=== PATIENT | female | born 1930 ===

== ENCOUNTER 2017-07-04 13:35 | Inpatient (IN) | payer MEDICAID ==
[2017-07-04] MEDS ORDERED: Albuterol-Ipratrop 3 mg / 0.5 (3 ml) UD IH STA ×2 (14:28→19:31)
[2017-07-04] MEDS ORDERED: Sodium Chloride 0.9% 1,000 ML IV STA (14:28)
--- NOTE | 2017-07-04 14:42 | ED PDOC ---
HPI: Abdomen Time Seen by Provider: 07/04/17 14:15 Chief Complaint (Nursing): Abdominal Pain History Per: Patient Onset/Duration Of Symptoms: Other (1 week) Current Symptoms Are (Timing): Still Present Severity: Moderate Location Of Pain/Discomfort: Epigastric Quality Of Discomfort: Unable To Describe Associated Symptoms: denies: Nausea, Vomiting, Diarrhea Additional Complaint(s): Epigastric abd pain x 1 week. Denies NVD. Denies fever. Also c/o cough productive yellow sputum assoc with SOB. Past Medical History Vital Signs: Last Vital Signs Temp 98.8 F 07/04/17 14:04 Pulse 100 H 07/04/17 14:04 Resp 20 07/04/17 14:04 BP 119/72 07/04/17 14:04 Pulse Ox 98 07/04/17 14:43 - Medical History PMH: Asthma, HTN - Family History Family History: States: Unknown Family Hx - Home Medications Home Medications: Ambulatory Orders Medication Instructions Recorded Albuterol Sulfate [Ventolin Hfa] 2 puff IH Q4 PRN 07/04/17 Aspirin [Ecotrin] 81 mg PO DAILY 07/04/17 Diclofenac Sodium [Voltaren] 50 mg PO Q12 07/04/17 Famotidine [Pepcid] 20 mg PO QPM 07/04/17 Gabapentin [Neurontin] 300 mg PO Q12 07/04/17 Memantine [Namenda] 5 mg PO DAILY 07/04/17 Omeprazole [Omeprazole] 40 mg PO DAILY 07/04/17 Oxybutynin [Ditropan Tab] 5 mg PO Q12 07/04/17 Pentoxifylline [Pentoxil] 400 mg PO Q12 07/04/17 Sertraline [Zoloft] 50 mg PO DAILY 07/04/17 hydroCHLOROthiazide [Hydrodiuril] 25 mg PO DAILY 07/04/17 - Allergies Allergies/Adverse Reactions: Allergies Allergy/AdvReac Type Severity Reaction Status Date / Time No Known Allergies Allergy Verified 07/04/17 14:04 Review of Systems ROS Statement: Except As Marked, All Systems Reviewed And Found Negative Constitutional: Negative for: Fever Respiratory: Positive for: Cough, Shortness of Breath Gastrointestinal: Positive for: Abdominal Pain. Negative for: Nausea, Vomiting , Diarrhea Physical Exam - Reviewed Nursing Documentation Reviewed: Yes Vital Signs Reviewed: Yes - Physical Exam Appears: Positive for: Non-toxic, No Acute Distress Head Exam: Positive for: ATRAUMATIC, NORMAL INSPECTION, NORMOCEPHALIC Skin: Positive for: Normal Color, Warm, DRY Eye Exam: Positive for: EOMI, Normal appearance, PERRL ENT: Positive for: Normal ENT Inspection Neck: Positive for: Normal, Painless ROM Cardiovascular/Chest: Positive for: Regular Rate, Rhythm Respiratory: Positive for: Rhonchi, Wheezing. Negative for: Respiratory Distress Gastrointestinal/Abdominal: Positive for: Soft, Tenderness Back: Positive for: Normal Inspection Extremity: Positive for: Normal ROM Neurologic/Psych: Positive for: Alert, Oriented - Laboratory Results Result Diagrams: 07/04/17 16:09 07/04/17 16:09 - ECG O2 Sat by Pulse Oximetry: 98 Disposition - Clinical Impression Clinical Impression: Exacerbation of asthma, Bronchitis - Patient ED Disposition Is Patient to be Admitted: Yes - Disposition Disposition Time: 20:44 Condition: FAIR Forms: [facility] (Greenlandic) - Pt Status Changed To: Hospital Disposition Of: Observation - POA Present On Arrival: None
[2017-07-04] MEDS ORDERED: Albuterol-Ipratrop 3 mg / 0.5 (3 ml) UD ONE ×2 (15:06→20:23)
[2017-07-04 16:15] LABS: BASO % 0.5 % (0.0-2.0); EOS # 0.1 K/uL (0.0-0.7); EOS % 1.5 % (0.0-4.0); HEMOGLOBIN 11.2 g/dL (12.0-16.0); LYMPH # 2.3 K/uL (1.0-4.3); LYMPH % 27.5 % (20.0-40.0); MEAN CELL VOLUME 97.3 fl (81.0-99.0); MEAN CORPUSCULAR HEMOGLOBIN 32.7 pg (27.0-31.0); MEAN CORPUSCULAR HGB CONC 33.6 g/dL (33.0-37.0); MEAN PLATELET VOLUME 9.2 fl (7.2-11.7); MONO # 0.7 K/uL (0.0-0.8); MONO % 8.7 % (0.0-10.0); NEUT # 5.1 K/uL (1.8-7.0); NEUT % 61.8 % (50.0-75.0); NRBC % 0.1 % (0.0-0.0); RBC 3.42 Mil/uL (3.80-5.20); RED CELL DISTRIBUTION WIDTH 15.3 % (11.5-14.5); WHITE BLOOD COUNT 8.2 K/uL (4.8-10.8)
[2017-07-04] MEDS ORDERED: Sodium Chloride 0.9% 0 ML ONE (16:16)
[2017-07-04] MEDS ORDERED: Iohexol 300 100 ML IJ ONE (16:16)
[2017-07-04 16:27] LABS: ALB/GLOB RATIO 1.1 (1.0-2.1); ALBUMIN 3.8 g/dL (3.5-5.0); CALCIUM 8.5 mg/dL (8.4-10.2)
--- NOTE | 2017-07-04 16:37 | RAD ---
PROCEDURE: CHEST RADIOGRAPH, 1 VIEW HISTORY: Cough COMPARISON: No prior study available for comparison FINDINGS: LUNGS: Paratracheal tissues likely represent ectatic great vessels. . Mild bibasilar atelectasis. PLEURA: No pneumothorax or pleural fluid seen. CARDIOVASCULAR: Heart is enlarged. Aorta ectatic and uncoiled. Prominent right pulmonary artery more prominent in appearance likely due to patient rotation to the right. Possibility of a right hilar lymph node not completely excluded. OSSEOUS STRUCTURES: No significant abnormalities. VISUALIZED UPPER ABDOMEN: Normal. OTHER FINDINGS: None. IMPRESSION: Mild bibasilar atelectasis. Paratracheal densities felt to represent ectatic great vessels. Cardiomegaly. Aorta is ectatic and uncoiled. Probable enlarged pulmonary artery more conspicuous in appearance likely due to patient rotation to the right side however the possibility of a prominent right hilar lymph node not excluded.
[2017-07-04] MEDS ORDERED: Potassium Chloride 20 mEq ER Tab PO ONE ×2 (16:45→20:23)
[2017-07-04] MEDS ORDERED: cefTRIAXone (Rocephin) 1 gm Inj ONE (21:51)
[2017-07-05 01:40] VITALS: BMI 173.3
[2017-07-05] MEDS: Albuterol-Ipratrop 3 mg / 0.5 (3 ml) UD INH SCH ×6 (04:10→23:45)
[2017-07-05 05:53] LABS: HEMOGLOBIN 10.9 g/dL (12.0-16.0); MEAN CELL VOLUME 97.3 fl (81.0-99.0); MEAN CORPUSCULAR HEMOGLOBIN 32.8 pg (27.0-31.0); MEAN CORPUSCULAR HGB CONC 33.7 g/dL (33.0-37.0); RBC 3.33 Mil/uL (3.80-5.20); RED CELL DISTRIBUTION WIDTH 15.2 % (11.5-14.5); WHITE BLOOD COUNT 6.8 K/uL (4.8-10.8)
[2017-07-05 06:04] LABS: ALB/GLOB RATIO 1.1 (1.0-2.1); ALBUMIN 3.7 g/dL (3.5-5.0); CALCIUM 8.5 mg/dL (8.4-10.2)
[2017-07-05 06:18] LABS: T4 9.55 ug/dl (5.5-11.0)
[2017-07-05 06:32] LABS: T3 0.945 nmol/L (1.49-2.60)
--- NOTE | 2017-07-05 08:29 | CP.PCM.HP ---
History of Present Illness - History of Present Illness History of Present Illness: 86 yo ,f, PMhx/o Asthma, HTN presents c/o productive cough with whitish expectoration started 7 days associated with SOB, wheezing, . Patient also c/o epigastric abd pain postprandial for one months and dysuria for the last 8 days. Patient denies fever, chills. Chest pain, SOB, n,v,d, abd pain, orthopnea , pedal edema, PND. Patient is not good historian. She reports sadness for about 1 month, low appetite, insominia. Taking Zoloft at home. Patient seen with Dr Savannah dover. Psyq consult Transfer to [facility]. Present on Admission - Present on Admission Any Indicators Present on Admission: No History of DVT/PE: No History of Uncontrolled Diabetes: No Urinary Catheter: No Decubitus Ulcer Present: No Review of Systems - Review of Systems All systems: reviewed and no additional remarkable complaints except - Respiratory Respiratory: Cough, Dyspnea - Gastrointestinal Additional comments: epigastric abd pain Past Patient History - Past Medical History & Family History Past Medical History?: Yes - Past Social History Smoking Status: Never Smoked - CARDIAC Hx Cardiac Disorders: Yes Hx Hypertension: Yes - PULMONARY Hx Respiratory Disorders: Yes Hx Asthma: Yes - ENDOCRINE/METABOLIC Other/Comment: high cholesterol - MUSCULOSKELETAL/RHEUMATOLOGICAL Hx Arthritis: Yes Hx Falls: No - PSYCHIATRIC Hx Substance Use: No - ANESTHESIA Hx Anesthesia: No Meds Allergies/Adverse Reactions: Allergies Allergy/AdvReac Type Severity Reaction Status Date / Time No Known Allergies Allergy Verified 07/04/17 14:04 Physical Exam - Constitutional Appears: Non-toxic, No Acute Distress - Head Exam Head Exam: ATRAUMATIC, NORMOCEPHALIC - Eye Exam Eye Exam: Normal appearance - ENT Exam ENT Exam: Mucous Membranes Moist - Respiratory Exam Respiratory Exam: Rhonchi, Wheezes. absent: Rales - Cardiovascular Exam Cardiovascular Exam: REGULAR RHYTHM, +S1, +S2 - GI/Abdominal Exam GI & Abdominal Exam: Normal Bowel Sounds, Soft. absent: Rebound, Tenderness - Extremities Exam Extremities exam: Positive for: normal inspection. Negative for: pedal edema - Neurological Exam Neurological exam: Alert, Oriented x3 - Psychiatric Exam Psychiatric exam: Flat Affect - Skin Skin Exam: Intact Results - Vital Signs Recent Vital Signs: Last Vital Signs Temp 98.5 F 07/05/17 04:45 Pulse 86 07/05/17 04:45 Resp 19 07/05/17 04:45 BP 101/50 L 07/05/17 04:45 Pulse Ox 97 07/05/17 04:45 - Labs Result Diagrams: 07/05/17 04:40 07/05/17 04:40 Labs: Laboratory Results - last 24 hr 07/04/17 07/04/17 07/05/17 16:09 16:09 04:40 WBC 8.2 6.8 RBC 3.42 L 3.33 L Hgb 11.2 L 10.9 L Hct 33.3 L 32.4 L MCV 97.3 97.3 MCH 32.7 H 32.8 H MCHC 33.6 33.7 RDW 15.3 H 15.2 H Plt Count 223 219 MPV 9.2 Neut % (Auto) 61.8 Lymph % (Auto) 27.5 [place] % (Auto) 8.7 Eos % (Auto) 1.5 Baso % (Auto) 0.5 Neut # (Auto) 5.1 Lymph # (Auto) 2.3 [place] # (Auto) 0.7 Eos # (Auto) 0.1 Baso # (Auto) 0.0 Sodium 144 Potassium 3.0 L Chloride 98 Carbon Dioxide 29 Anion Gap 20 BUN 20 H Creatinine 1.2 Est GFR ( Amer) 52 Est GFR (Non-Af Amer) 43 Random Glucose 104 Calcium 8.5 Total Bilirubin 0.5 AST 32 ALT 35 Alkaline Phosphatase 113 Total Protein 7.4 Albumin 3.8 Globulin 3.6 Albumin/Globulin Ratio 1.1 Triglycerides Cholesterol LDL Cholesterol Direct HDL Cholesterol Vitamin B12 Thyroxine (T4) Total T3 TSH 3rd Generation 07/05/17 04:40 WBC RBC Hgb Hct MCV MCH MCHC RDW Plt Count MPV Neut % (Auto) Lymph % (Auto) [place] % (Auto) Eos % (Auto) Baso % (Auto) Neut # (Auto) Lymph # (Auto) [place] # (Auto) Eos # (Auto) Baso # (Auto) Sodium 142 Potassium 3.1 L Chloride 100 Carbon Dioxide 26 Anion Gap 19 BUN 19 H Creatinine 1.1 Est GFR ( Amer) 57 Est GFR (Non-Af Amer) 47 Random Glucose 193 H Calcium 8.5 Total Bilirubin 0.4 AST 26 ALT 29 Alkaline Phosphatase 111 Total Protein 7.1 Albumin 3.7 Globulin 3.4 Albumin/Globulin Ratio 1.1 Triglycerides 131 Cholesterol 186 LDL Cholesterol Direct 118 HDL Cholesterol 25 L Vitamin B12 515 Thyroxine (T4) 9.55 Total T3 0.945 L TSH 3rd Generation 0.04 L Assessment & Plan - Assessment and Plan (Free Text) Plan: Assessment/Plan 1) Acute asthma exacerbation -solumedrol 60 mg IV Q6h -duoneb -pepecid 20 mg BID 2) UTI Ct Abd: Rigth ureterovesicular junction 3 mm calculus w/o significant hydroureteronephrosis c/w ceftriaxone -f/u urine cx 3) Hypokalemia May be related to Duoneb KCL 40 meq PO -hold HCTZ -f/u CMP 4) HTN -controlled -hold hctz 5) Depression -patient repots sadness, insomnia, low apptite -c/w Zoloft -psyq consult 6) Decresed GFR -GFR 45 May be related to CKD, no labs in the last 3 months to compare GFR -f/u CMP 7) DVT Prophylaxis Lovenox 40 mg daily
--- NOTE | 2017-07-05 08:46 | CT ---
PROCEDURE: CT Abdomen and Pelvis without intravenous contrast HISTORY: r/o kidney stone COMPARISON: None. TECHNIQUE: Contiguous images were obtained from the domes of the diaphragms to the upper thighs without the administration of intravenous contrast. Oral contrast was not administered. Radiation dose: Total exam DLP = 650.6 mGy-cm. This CT exam was performed using one or more of the following dose reduction techniques: Automated exposure control, adjustment of the mA and/or kV according to patient size, and/or use of iterative reconstruction technique. FINDINGS: LOWER THORAX: Prominence of the interstitial markings with atelectasis/scarring. Cardiomegaly. Coronary arterial and valvular calcifications. Heavy mitral annular calcification. LIVER: Unrem punctate hepatic calcification arkable. No gross lesion or ductal dilatation. GALLBLADDER AND BILE DUCTS: Prior cholecystectomy with surgical clips in place. PANCREAS: Unremarkable. No gross lesion or ductal dilatation. SPLEEN: Unremarkable. ADRENALS: Unremarkable. No mass. KIDNEYS AND URETERS: Punctate nonobstructive right lower pole calculus. Bilateral punctate cortical calcifications. Right ureterovesicular junction 2 x 2 x 2 mm calculus without significant hydroureteronephrosis. No solid mass. VASCULATURE: Unremarkable. No aortic aneurysm. BOWEL: Colonic diverticulosis. No obstruction. No gross mural thickening. APPENDIX: Not visualized. PERITONEUM: Unremarkable. No free fluid. No free air. LYMPH NODES: Unremarkable. No enlarged lymph nodes. BLADDER: Unremarkable. REPRODUCTIVE: Unremarkable. BONES: Severe spinal degenerative changes with grade 2 anterolisthesis of L5 on S1. OTHER FINDINGS: None. IMPRESSION: Right ureterovesicular junction 3 mm calculus without significant hydroureteronephrosis. Grade 2 anterolisthesis of L5 on S1. Additional chronic findings as above.
[2017-07-05] MEDS ORDERED: DICLOFENAC SODIUM 50 MG PO SCH (09:00)
[2017-07-05] MEDS: Enoxaparin 40 mg Syringe SC SCH (09:19)
[2017-07-05] MEDS ORDERED: Potassium Chloride 20 mEq/15 ml LIQ UD PO ONE (09:35)
--- NOTE | 2017-07-05 11:25 | CARD ---
APPROVED REPORT EKG Measurement Heart [id number] <Conclusion> Normal sinus rhythm Normal ECG
[2017-07-05 13:31] LABS: FOLATE 7.2 ng/mL
[2017-07-05 14:07] LABS: SQUAMOUS EPITHIAL 2 /hpf (0-5); URINE BACTERIA MANY (<OCC); URINE BILIRUBIN NEGATIVE (NEGATIVE); URINE BLOOD NEGATIVE (NEGATIVE); URINE CLARITY CLOUDY (Clear); URINE COLOR YELLOW (YELLOW); URINE GLUCOSE (UA) 50 mg/dL (Normal); URINE LEUKOCYTE ESTERASE LARGE Leu/uL (Negative); URINE PROTEIN 30 mg/dL (NEGATIVE); URINE UROBILINOGEN 0.2-1.0 mg/dL (0.2-1.0)
[2017-07-06] MEDS: Albuterol-Ipratrop 3 mg / 0.5 (3 ml) UD INH SCH ×2 (04:37→07:57)
[2017-07-06 06:51] LABS: BASO % 0.1 % (0.0-2.0); HEMOGLOBIN 10.1 g/dL (12.0-16.0); LYMPH % 5.9 % (20.0-40.0); MEAN CORPUSCULAR HEMOGLOBIN 32.6 pg (27.0-31.0); MEAN CORPUSCULAR HGB CONC 33.6 g/dL (33.0-37.0); MEAN PLATELET VOLUME 9.6 fl (7.2-11.7); MONO # 0.2 K/uL (0.0-0.8); MONO % 1.2 % (0.0-10.0); NEUT # 15.9 K/uL (1.8-7.0); NEUT % 92.8 % (50.0-75.0); PLATELET COUNT 243 K/uL (130-400); RBC 3.09 Mil/uL (3.80-5.20); RED CELL DISTRIBUTION WIDTH 15.2 % (11.5-14.5); WHITE BLOOD COUNT 17.1 K/uL (4.8-10.8)
[2017-07-06 06:59] LABS: ALB/GLOB RATIO 1.1 (1.0-2.1); ALBUMIN 3.6 g/dL (3.5-5.0); CALCIUM 8.4 mg/dL (8.4-10.2)
--- NOTE | 2017-07-06 07:56 | PQF GENQUE ---
This form is a permanent part of the medical record 07/06/16 Dr. Nuñez, Please clarify the type of asthma if known. Patient presents to the ER with c/o productive cough with whitish expectoration which started 7 days ago and associated with SOB, wheezing . CXR: Mild bibasilar atelectasis. Treatment includes: Duonebs, Solumedrol and Rocephin. Clarification of your documentation is requested to better reflect the severity of illness and intensity of treatment of your patient. Indicators present PHYSICIAN'S RESPONSE 1. Please clarify the type of asthma if known Childhood Cough variant Exercise induced Late onset Mild intermittent Mild persistent Moderate persistent Severe persistent With bronchitis(please clarify acuity of bronchitis) With chronic lung disease (please document specific Other (please specify) Clinically unable to determine Unknown Based on your medical judgment of the clinical indicators outlined above please clarify the following: [] Practitioner response [] If unable to determine, please check the box, sign and date. Present On Admission (POA) Indicator: [] Present at the time of admission [] Not present at the time of admission [] Clinically Undetermined In responding to this query, please exercise your independent professional judgment. The fact that a question is asked does not imply that any particular answer is desired or expected. Thank you for your clarification on this documentation. If you have any questions please call:ext [phone] * Thank you, Cielo Murillo RN CDMP [facility]
--- NOTE | 2017-07-06 08:10 | PQF GENQUE ---
This form is a permanent part of the medical record 07/06/17 Dr. Nuñez, Please clarify the acuity of bronchitis: Patient presents to the ER with c/o productive cough with whitish expectoration which started 7 days ago and associated with SOB, wheezing . CXR: Mild bibasilar atelectasis. Treatment includes: Duonebs, Solumedrol and Rocephin. ER: Exacerbation of Asthma, Bronchitis Clarification of your documentation is requested to better reflect the severity of illness and intensity of treatment of your patient. Indicators present PHYSICIAN'S RESPONSE 1.Please clarify the acuity of bronchitis: Acute Acute on chronic Other (please specify) Clinically unable to determine 2. Please clarify the type of bronchitis Allergic Aspiration Asthmatic Chronic obstructive bronchitis Obstructive bronchitis Other (please specify) Clinically unable to determine Unknown Based on your medical judgment of the clinical indicators outlined above please clarify the following: [] Practitioner response [] If unable to determine, please check the box, sign and date. Present On Admission (POA) Indicator: [] Present at the time of admission [] Not present at the time of admission [] Clinically Undetermined In responding to this query, please exercise your independent professional judgment. The fact that a question is asked does not imply that any particular answer is desired or expected. Thank you for your clarification on this documentation. If you have any questions please call:ext [phone] * Thank you, Cielo Murillo RN CDMP [facility]
[2017-07-06] MEDS: Enoxaparin 40 mg Syringe SC SCH (08:24)
--- NOTE | 2017-07-06 09:30 | CP.PCM.PN ---
Subjective - Date & Time of Evaluation Date of Evaluation: 07/06/17 Time of Evaluation: 07:20 - Subjective Subjective: Patient seen and examined bedside with Dr Nuñez. Patient's son present. Patient c /o b/l hand tremor that she noticed since yesterday. Patient still with SOB and wheezing even with Duoneb Q 4h. Reports less dysuria today and reports mild lower back pain. reports feeling less sad today. Patient's son reports no psyq history or psyq admission, but states taht she is always depressed and missing the family, with difficulty to sleep, and low appetite. reports that patient use 02 permamnent at home and does not walk to much. Pending psyq evaluation duoneb side effects. will switch to xopenex Objective - Vital Signs/Intake and Output Vital Signs (last 24 hours): Temp Pulse Resp BP Pulse Ox 98.0 F 106 H 20 109/61 94 L 07/06/17 08:28 07/06/17 08:28 07/06/17 08:28 07/06/17 08:28 07/06/17 08:28 - Medications Medications: Current Medications Albuterol/Ipratropium (Duoneb 3 Mg/0.5 Mg (3 Ml) Ud) 3 ml INH RQ4 [facility] Last Admin: 07/06/17 07:57 Dose: 3 ml Aspirin (Ecotrin) 81 mg PO DAILY [facility] Last Admin: 07/06/17 08:24 Dose: 81 mg Enoxaparin Sodium (Lovenox) 40 mg SC DAILY [facility] PRN Reason: Protocol Last Admin: 07/06/17 08:24 Dose: 40 mg Famotidine (Pepcid) 20 mg PO BID [facility] Last Admin: 07/06/17 08:24 Dose: 20 mg Gabapentin (Neurontin) 300 mg PO Q12 [facility] Last Admin: 07/06/17 08:24 Dose: 300 mg Home Med (Diclofenac Sodium [Voltaren]) 50 mg PO Q12 [facility] Hydrochlorothiazide (Hydrodiuril) 25 mg PO DAILY [facility] Last Admin: 07/05/17 09:18 Dose: 25 mg Ceftriaxone Sodium 1 gm/ (Sodium Chloride) 100 mls @ 100 mls/hr IVPB DAILY [facility] PRN Reason: Protocol Last Admin: 07/05/17 16:31 Dose: 100 mls/hr Azithromycin 500 mg/ Sodium (Chloride) 250 mls @ 250 mls/hr IVPB DAILY [facility] PRN Reason: Protocol Memantine (Namenda) 5 mg PO DAILY [facility] Last Admin: 07/06/17 08:24 Dose: 5 mg Methylprednisolone (Solu-Medrol) 60 mg IVP Q6H [facility] Last Admin: 07/06/17 00:39 Dose: 60 mg Oxybutynin Chloride (Ditropan Tab) 5 mg PO Q12 [facility] Last Admin: 07/06/17 08:24 Dose: 5 mg Pentoxifylline (Pentoxil) 400 mg PO Q12 [facility] Last Admin: 07/06/17 08:24 Dose: 400 mg Sertraline HCl (Zoloft) 50 mg PO DAILY [facility] Last Admin: 07/06/17 08:25 Dose: 50 mg - Labs Labs: 07/06/17 05:35 07/06/17 05:35 - Constitutional Appears: Non-toxic, No Acute Distress - Head Exam Head Exam: ATRAUMATIC, NORMOCEPHALIC - Eye Exam Eye Exam: Normal appearance - ENT Exam ENT Exam: Mucous Membranes Moist - Respiratory Exam Respiratory Exam: Decreased Breath Sounds, Rales, Wheezes Additional comments: decreased breath sound b/l . rales b/l 2/3 lung smith. scattered wheezing - Cardiovascular Exam Cardiovascular Exam: REGULAR RHYTHM, +S1, +S2 - GI/Abdominal Exam GI & Abdominal Exam: Soft, Normal Bowel Sounds. absent: Tenderness - Extremities Exam Extremities Exam: Normal Inspection. absent: Pedal Edema - Neurological Exam Neurological Exam: Alert, Awake, Oriented x3 - Psychiatric Exam Psychiatric exam: Flat Affect - Skin Skin Exam: Intact Assessment and Plan - Assessment and Plan (Free Text) Plan: Assessment/Plan Patient had 2 medical record numbers: last admission reports Hx/o COPD 1) COPD exacerbation -emphysema. No acute on chronic bronchitis -patient home O2 dependant - Ct chest 11/2017: tiny calcified nodule RUL. Mild centrilobular emphysema in the lungs. Fibrotic changes RUL. Subsegmental atelectasis RML and b/l lobes. No mediastinal or hilar lymphadenopathy CT chest 07/06/17 : Mild centrilobular emphysema in the lungs. Dilated main pulmonary artery 3.9 cm consistent with pulmonary arterial hypertension. -solumedrol 60 mg IV Q6h -xopenex q 8 h -c/w ceftriaxone, Azythromycin added. Noted leukocytosis related to steroid or new onset of PNA -pepecid 20 mg BID -f/u ECHO 2) UTI Ct Abd: Rigth ureterovesicular junction 3 mm calculus w/o significant hydroureteronephrosis c/w ceftriaxone -f/u urine cx 3) Hypokalemia - related to Duoneb and diuretics -K: 3.5 -kcl 20 mcq -hold HCTZ -f/u CMP 4) HTN -controlled -hold hctz 5) Depression -patient repots sadness, insomnia, low apptite -c/w Zoloft -psyq consult appreciated: will give remeron in low appetite 6) IRMA -prerenal -2nd chart reviewed and patient has not CKD -f/u urine na, cr, urine osmolality -Iv fluids NS 80 ml /h -f/u CMP 7) DVT Prophylaxis Lovenox 40 mg daily
[2017-07-06] MEDS ORDERED: Levalbuterol 1.25 MG/3 ML Inhal Soln UD INH PRN (10:30)
[2017-07-06] MEDS: Azithromycin 500 MG in Sodium Chloride 0.9% 250 ML IVPB SCH (11:04)
--- NOTE | 2017-07-06 11:09 | CP.PCM.CON ---
History of Present Illness - History of Present Illness History of Present Illness: Psychiatry consult note CC: "I'm here to get better." HPI: 86 yo female w/ h/o Asthma, Dementia, HTN, admitted w/ acute asthma exacerbation and UTI. Patient was a poor historian and unable to give her past medical history. She does report that she feels sad at times, but was unable to state if she has any past psychiatric history and did not know she was taking Zoloft. She denies AH/VH/paranoia/delusions. She was oriented to self and "hospital.". She denies suicidal ideation/plan/intent. PPHx: Unclear past psychiatric history, patient currently on Zoloft; Dementia PMHx: HTN, Asthma, Dementia, current UTI and hypokalemia ALL: NKDA MSE: A + O x self + "hospital", calm, cooperative, good eye contact, speech soft , thought process-non linear/tangential/loose; thought content- no paranoia/ delusions, mood "sad", affect- constricted, no AH/VH/SI/HI; poor I/J due to cognitive impairment Impression: 86 yo female w/ h/o Asthma, HTN, Dementia, admitted w/ acute asthma exacerbation and UTI. Patient has dementia and may have a history of depressive disorder; it seems like her primary issue at this time is her neurocognitive impairment. -No acute inpatient psychiatric admission indicated at this time -Can continue Zoloft; if patient has poor appetite and sleep, may consider switching from Zoloft to Remeron 7.5 mg PO HS and titrate gradually as needed Past Patient History - Past Medical History & Family History Past Medical History?: Yes - Past Social History Smoking Status: Never Smoked - CARDIAC Hx Cardiac Disorders: Yes Hx Hypertension: Yes - PULMONARY Hx Respiratory Disorders: Yes Hx Asthma: Yes - ENDOCRINE/METABOLIC Other/Comment: high cholesterol - MUSCULOSKELETAL/RHEUMATOLOGICAL Hx Arthritis: Yes Hx Falls: No - PSYCHIATRIC Hx Substance Use: No - ANESTHESIA Hx Anesthesia: No Meds Allergies/Adverse Reactions: Allergies Allergy/AdvReac Type Severity Reaction Status Date / Time No Known Allergies Allergy Verified 07/04/17 14:04 - Medications Medications: Current Medications Acetaminophen (Tylenol 325mg Tab) 650 mg PO Q4 PRN PRN Reason: Headache Aspirin (Ecotrin) 81 mg PO DAILY [facility] Last Admin: 07/06/17 08:24 Dose: 81 mg Enoxaparin Sodium (Lovenox) 40 mg SC DAILY COUNTS [facility]CLUDE 234 BEDS AT THE [facility] PRN Reason: Protocol Last Admin: 07/06/17 08:24 Dose: 40 mg Famotidine (Pepcid) 20 mg PO BID COUNTS INCLUDE 234 BEDS AT THE [facility] Last Admin: 07/06/17 08:24 Dose: 20 mg Gabapentin (Neurontin) 300 mg PO Q12 COUNTS INCLUDE 234 BEDS AT THE [facility] Last Admin: 07/06/17 08:24 Dose: 300 mg Home Med (Diclofenac Sodium [Voltaren]) 50 mg PO Q12 COUNTS INCLUDE 234 BEDS AT THE [facility] Hydrochlorothiazide (Hydrodiuril) 25 mg PO DAILY COUNTS INCLUDE 234 BEDS AT THE [facility] Last Admin: 07/05/17 09:18 Dose: 25 mg Ceftriaxone Sodium 1 gm/ (Sodium Chloride) 100 mls @ 100 mls/hr IVPB DAILY COUNTS INCLUDE 234 BEDS AT THE [facility] PRN Reason: Protocol Last Admin: 07/06/17 10:00 Dose: 100 mls/hr Azithromycin 500 mg/ Sodium (Chloride) 250 mls @ 250 mls/hr IVPB DAILY COUNTS INCLUDE 234 BEDS AT THE [facility] PRN Reason: Protocol Last Admin: 07/06/17 11:04 Dose: 250 mls/hr Levalbuterol HCl (Xopenex) 1.25 mg INH RQ8 PRN PRN Reason: Shortness of Breath Memantine (Namenda) 5 mg PO DAILY COUNTS INCLUDE 234 BEDS AT THE [facility] Last Admin: 07/06/17 08:24 Dose: 5 mg Methylprednisolone (Solu-Medrol) 60 mg IVP Q6H COUNTS INCLUDE 234 BEDS AT THE [facility] Last Admin: 07/06/17 10:01 Dose: 60 mg Oxybutynin Chloride (Ditropan Tab) 5 mg PO Q12 COUNTS INCLUDE 234 BEDS AT THE [facility] Last Admin: 07/06/17 08:24 Dose: 5 mg Pentoxifylline (Pentoxil) 400 mg PO Q12 COUNTS INCLUDE 234 BEDS AT THE [facility] Last Admin: 07/06/17 08:24 Dose: 400 mg Sertraline HCl (Zoloft) 50 mg PO DAILY COUNTS INCLUDE 234 BEDS AT THE [facility] Last Admin: 07/06/17 08:25 Dose: 50 mg Results - Vital Signs Recent Vital Signs: Last Vital Signs Temp 98.0 F 07/06/17 08:28 Pulse 106 H 07/06/17 08:28 Resp 20 07/06/17 08:28 BP 109/61 07/06/17 08:28 Pulse Ox 94 L 07/06/17 08:28 - Labs Result Diagrams: 07/06/17 05:35 07/06/17 05:35 Labs: Laboratory Results - last 24 hr 07/05/17 07/05/17 07/06/17 04:40 13:48 05:35 WBC 17.1 H D RBC 3.09 L Hgb 10.1 L Hct 30.0 L MCV 97.0 MCH 32.6 H MCHC 33.6 RDW 15.2 H Plt Count 243 MPV 9.6 Neut % (Auto) 92.8 H Lymph % (Auto) 5.9 L [place] % (Auto) 1.2 Eos % (Auto) 0.0 Baso % (Auto) 0.1 Neut # (Auto) 15.9 H Lymph # (Auto) 1.0 [place] # (Auto) 0.2 Eos # (Auto) 0.0 Baso # (Auto) 0.0 Sodium Potassium Chloride Carbon Dioxide Anion Gap BUN Creatinine Est GFR ( Amer) Est GFR (Non-Af Amer) Random Glucose Calcium Total Bilirubin AST ALT Alkaline Phosphatase NT-Pro-B Natriuret Pep Total Protein Albumin Globulin Albumin/Globulin Ratio Folate 7.2 Urine Color Yellow Urine Clarity Cloudy Urine pH 5.0 Ur Specific [place] 1.017 Urine Protein 30 Urine Glucose (UA) 50 Urine Ketones Negative Urine Blood Negative Urine Nitrate Negative Urine Bilirubin Negative Urine Urobilinogen 0.2-1.0 Ur Leukocyte Esterase Large Urine Microscopic WBC 228 H Ur Squamous Epith Cells 2 Urine Bacteria Many H Hyaline Casts 3-5 H 07/06/17 07/06/17 05:35 09:23 WBC RBC Hgb Hct MCV MCH MCHC RDW Plt Count MPV Neut % (Auto) Lymph % (Auto) [place] % (Auto) Eos % (Auto) Baso % (Auto) Neut # (Auto) Lymph # (Auto) [place] # (Auto) Eos # (Auto) Baso # (Auto) Sodium 140 Potassium 3.5 L Chloride 99 Carbon Dioxide 22 Anion Gap 23 H BUN 31 H Creatinine 1.3 H Est GFR ( Amer) 47 Est GFR (Non-Af Amer) 39 Random Glucose 190 H Calcium 8.4 Total Bilirubin 0.3 AST 27 ALT 27 Alkaline Phosphatase 106 NT-Pro-B Natriuret Pep 375 Total Protein 6.8 Albumin 3.6 Globulin 3.2 Albumin/Globulin Ratio 1.1 Folate Urine Color Urine Clarity Urine pH Ur Specific [place] Urine Protein Urine Glucose (UA) Urine Ketones Urine Blood Urine Nitrate Urine Bilirubin Urine Urobilinogen Ur Leukocyte Esterase Urine Microscopic WBC Ur Squamous Epith Cells Urine Bacteria Hyaline Casts
[2017-07-06 11:31] LABS: ANISOCYTOSIS SLIGHT; BANDS 1 % (0-2); LYMPHOCYTE 7 % (20-50); MICROCYTOSIS SLIGHT; MONOCYTE 2 % (0-10); NEUTROPHIL 90 % (42-75); PLATELET ESTIMATE NORMAL (NORMAL); TOTAL CELLS COUNTED 100
[2017-07-06] MEDS: Levalbuterol 1.25 MG/3 ML Inhal Soln UD INH SCH ×3 (11:40→19:01)
--- NOTE | 2017-07-06 12:13 | CT ---
PROCEDURE: CT Chest without contrast HISTORY: Cough, shortness of breath. COMPARISON: 07/04/2017 single-view chest TECHNIQUE: Contiguous axial images were obtained through the chest without intravenous contrast enhancement. Sagittal and coronal reconstructions were performed. Radiation dose (DLP): 388.12 mGy-cm. This CT exam was performed using one or more of the following dose reduction techniques: Automated exposure control, adjustment of the mA and/or kV according to patient size, and/or use of iterative reconstruction technique. FINDINGS: LUNGS: Clear lungs. Visualized airway clear. Mild centrilobular emphysematous change. MEDIASTINUM: Unremarkable thoracic aorta. No aneurysm. Cardiomegaly. No evidence of acute, significant cardiovascular disease. Dilated main pulmonary artery 3.9 cm consistent with pulmonary arterial hypertension. No lymphadenopathy. Incidental finding(s): Dense calcification within the mitral valve annulus abnormal findings PLEURA: No pleural fluid. No pneumothorax. BONES: No fracture. No destructive lesion. UPPER ABDOMEN: Grossly unremarkable. OTHER FINDINGS: None. IMPRESSION: No active pulmonary disease. Additional benign and/or incidental findings described above.
--- NOTE | 2017-07-06 12:36 | CP.PCM.PCO ---
Assessment & Plan - Assessment and Plan (Free Text) Assessment: pt. with c/o mild sob, tremors, + wheezing duoneb switched to xopenex pt. will requires Rocephin/ Zithromax daily x 1 week cont. solumedrol taper
[2017-07-06] MEDS ORDERED: Potassium Chloride 20 mEq/15 ml LIQ UD PO ONE (13:00)
[2017-07-06] MEDS: Sodium Chloride 0.9% 1,000 ML IV SCH (13:17)
[2017-07-06 13:50] LABS: ABG ALLEN TEST YES; ARTERIAL BLOOD GAS HCO3 28.1 mmol/L (21-28); ARTERIAL BLOOD GAS HEMOGLOBIN 9.9 g/dL (11.7-17.4); ARTERIAL BLOOD GAS O2 CAPACITY 13.5 mL/dL (16-24); ARTERIAL BLOOD GAS O2 CONTENT 12.9 ML/dL (15-23); ARTERIAL BLOOD GAS O2 SAT 95.4 % (95-98); ARTERIAL BLOOD GAS PCO2 40 mm/Hg (35-45); ARTERIAL BLOOD GAS PH 7.46 (7.35-7.45); ARTERIAL BLOOD GAS PO2 61 mm/Hg (80-100); ARTERIAL BLOOD GAS TCO2 29.6 mmol/L (22-28)
[2017-07-06 23:48] LABS: CREATININE, RANDOM URINE 32.6 mg/dL
[2017-07-07] MEDS: Levalbuterol 1.25 MG/3 ML Inhal Soln UD INH SCH ×4 (01:29→19:36)
[2017-07-07] MEDS: Sodium Chloride 0.9% 1,000 ML IV SCH (02:08)
--- NOTE | 2017-07-07 07:49 | PQF GENQUE ---
This form is a permanent part of the medical record 07/07/17 Dr. Nuñez, The medical record includes the following abbreviation: IRMA Please document the associated medical diagnosis related to the above abbreviation. Acute kidney injury Acute kidney insufficiency Other explanation Documentation of IRMA prerenal. BUN 20> 19 >31. Creatinine 1.2> 1.1 > 1.3. GFR 43 > 47> 39. Treated with IVF. Clarification of your documentation is requested to better reflect the severity of illness and intensity of treatment of your patient. Indicators present PHYSICIAN'S RESPONSE Based on your medical judgment of the clinical indicators outlined above please clarify the following: [] Practitioner response [] If unable to determine, please check the box, sign and date. Present On Admission (POA) Indicator: [] Present at the time of admission [] Not present at the time of admission [] Clinically Undetermined In responding to this query, please exercise your independent professional judgment. The fact that a question is asked does not imply that any particular answer is desired or expected. Thank you for your clarification on this documentation. If you have any questions please call:[phone] * Thank you, Cielo Murillo RN [facility]
--- NOTE | 2017-07-07 08:10 | CP.PCM.PN ---
Subjective - Date & Time of Evaluation Date of Evaluation: 07/07/17 Time of Evaluation: 07:15 - Subjective Subjective: Patient seen and examined bedside with Dr Nuñez. Patient still reporting dysuria and mild SOB. voiding frequent. Denies fever, chest pain, n,v,abd pain. Urine cx: E coli resistent to cipro, cephaz. sensitive to Zosyn. 2.25 Q gh renal dose started . Rocephin discontinued renal function improving Psyq consult appreciated lactic acid high 2/2 sepsis. Important: Patient has 2 medical record numbers. Objective - Vital Signs/Intake and Output Vital Signs (last 24 hours): Temp Pulse Resp BP Pulse Ox 98.0 F 76 18 112/61 95 07/07/17 00:03 07/07/17 00:03 07/07/17 00:03 07/07/17 00:03 07/07/17 00:03 - Medications Medications: Current Medications Acetaminophen (Tylenol 325mg Tab) 650 mg PO Q4 PRN PRN Reason: Headache Last Admin: 07/06/17 11:10 Dose: 650 mg Aspirin (Ecotrin) 81 mg PO DAILY [facility] Last Admin: 07/06/17 08:24 Dose: 81 mg Enoxaparin Sodium (Lovenox) 40 mg SC DAILY [facility] PRN Reason: Protocol Last Admin: 07/06/17 08:24 Dose: 40 mg Famotidine (Pepcid) 20 mg PO BID [facility] Last Admin: 07/06/17 16:23 Dose: 20 mg Gabapentin (Neurontin) 300 mg PO Q12 [facility] Last Admin: 07/06/17 21:23 Dose: 300 mg Hydrochlorothiazide (Hydrodiuril) 25 mg PO DAILY [facility] Last Admin: 07/05/17 09:18 Dose: 25 mg Ceftriaxone Sodium 1 gm/ (Sodium Chloride) 100 mls @ 100 mls/hr IVPB DAILY [facility] PRN Reason: Protocol Last Admin: 07/06/17 10:00 Dose: 100 mls/hr Azithromycin 500 mg/ Sodium (Chloride) 250 mls @ 250 mls/hr IVPB DAILY [facility] PRN Reason: Protocol Last Admin: 07/06/17 11:04 Dose: 250 mls/hr Sodium Chloride (Sodium Chloride 0.9%) 1,000 mls @ 80 mls/hr IV .[id number] [facility] Stop: 07/07/17 12:58 Last Admin: 07/07/17 02:08 Dose: Not Given Levalbuterol HCl (Xopenex) 1.25 mg INH RQ6 [facility] Last Admin: 07/07/17 08:05 Dose: 1.25 mg Memantine (Namenda) 5 mg PO DAILY [facility] Last Admin: 07/06/17 08:24 Dose: 5 mg Methylprednisolone (Solu-Medrol) 60 mg IVP Q6H [facility] Last Admin: 07/07/17 01:04 Dose: 60 mg Oxybutynin Chloride (Ditropan Tab) 5 mg PO Q12 [facility] Last Admin: 07/06/17 21:23 Dose: 5 mg Pentoxifylline (Pentoxil) 400 mg PO Q12 [facility] Last Admin: 07/06/17 21:23 Dose: 400 mg Sertraline HCl (Zoloft) 50 mg PO DAILY [facility] Last Admin: 07/06/17 08:25 Dose: 50 mg - Labs Labs: 07/06/17 05:35 07/06/17 05:35 - Constitutional Appears: Non-toxic, No Acute Distress - Head Exam Head Exam: ATRAUMATIC, NORMOCEPHALIC - Eye Exam Eye Exam: Normal appearance - ENT Exam ENT Exam: Mucous Membranes Moist - Respiratory Exam Respiratory Exam: Decreased Breath Sounds, Rhonchi, Wheezes Additional comments: scattered on the front scattered - Cardiovascular Exam Cardiovascular Exam: REGULAR RHYTHM, +S1, +S2 - GI/Abdominal Exam GI & Abdominal Exam: Soft, Normal Bowel Sounds. absent: Tenderness - Extremities Exam Extremities Exam: Normal Inspection. absent: Pedal Edema - Back Exam Back Exam: NORMAL INSPECTION - Neurological Exam Neurological Exam: Alert, Awake, Oriented x3 - Psychiatric Exam Psychiatric exam: Flat Affect - Skin Skin Exam: Intact Assessment and Plan - Assessment and Plan (Free Text) Plan: Assessment/Plan Patient had 2 medical record numbers: last admission reports Hx/o COPD 1) COPD exacerbation -emphysema. -patient home O2 dependant - Ct chest 11/2017: tiny calcified nodule RUL. Mild centrilobular emphysema in the lungs. Fibrotic changes RUL. Subsegmental atelectasis RML and b/l lobes. No mediastinal or hilar lymphadenopathy CT chest 07/06/17 : Mild centrilobular emphysema in the lungs. Dilated main pulmonary artery 3.9 cm consistent with pulmonary arterial hypertension. -tapering solumedrol 40 mg IV Q6h -xopenex q 8 h -Discontinued Ceftriaxone and Zithromax. No pulmonary infiltrates -pepecid 20 mg BID -f/u ECHO pending 2) Sepsis -secondary to UTI -lactate 3.3 -SIRS: leukocytosis+Tachycardia+ UTI: ecoli sensitive to zosyn -started Zosyn 2.25 Q 6h renal dose 3) UTI -complicated Ct Abd: Rigth ureterovesicular junction 3 mm calculus w/o significant hydroureteronephrosis Urine cx: E coli. resistant to Cipro, cephazoline. Rocephin dc. Started zosyn renal dose -f/u urine cx 4) Hypokalemia -resolved -hold HCTZ -f/u CMP 5) HTN -controlled -hold hctz 6) Depression -patient repots sadness, insomnia, low apptite -c/w Zoloft -psyq consult appreciated: will give remeron if low appetite 7) IRMA -prerenal -Cr improving, BUN persist high -2nd chart reviewed and patient has not CKD -f/u urine na, cr, urine osmolality -Iv fluids NS 80 ml /h -f/u CMP 8) DVT Prophylaxis Lovenox 40 mg daily
[2017-07-07 09:07] LABS: HEMOGLOBIN 10.2 g/dL (12.0-16.0); LYMPH # 0.8 K/uL (1.0-4.3); LYMPH % 6.1 % (20.0-40.0); MEAN CELL VOLUME 97.3 fl (81.0-99.0); MEAN CORPUSCULAR HEMOGLOBIN 32.3 pg (27.0-31.0); MEAN CORPUSCULAR HGB CONC 33.2 g/dL (33.0-37.0); MONO # 0.2 K/uL (0.0-0.8); MONO % 1.4 % (0.0-10.0); NEUT # 12.5 K/uL (1.8-7.0); NEUT % 92.5 % (50.0-75.0); NRBC % 0.1 % (0.0-0.0); PLATELET COUNT 251 K/uL (130-400); RBC 3.18 Mil/uL (3.80-5.20); RED CELL DISTRIBUTION WIDTH 15.4 % (11.5-14.5); WHITE BLOOD COUNT 13.6 K/uL (4.8-10.8)
[2017-07-07 09:11] LABS: ALB/GLOB RATIO 1.1 (1.0-2.1); ALBUMIN 3.6 g/dL (3.5-5.0); CALCIUM 7.9 mg/dL (8.4-10.2)
[2017-07-07] MEDS: Azithromycin 500 MG in Sodium Chloride 0.9% 250 ML IVPB SCH (09:28)
[2017-07-07] MEDS: Enoxaparin 40 mg Syringe SC SCH (09:31)
[2017-07-07 11:12] LABS: ANISOCYTOSIS SLIGHT; HYPOCHROMIC SLIGHT; LARGE PLATELETS PRESENT; LYMPHOCYTE 8 % (20-50); MONOCYTE 2 % (0-10); NEUTROPHIL 90 % (42-75); PLATELET ESTIMATE NORMAL (NORMAL); TOTAL CELLS COUNTED 100; TOXIC GRANULATION PRESENT
--- NOTE | 2017-07-07 11:12 | CARD ---
APPROVED REPORT EXAM: Two-dimensional and M-mode echocardiogram with Doppler and color Doppler. Other Information Quality : GoodRhythm : Tachycardia Technically limited study due to Vertical LV.No M-Mode Images INDICATION Congestive Heart Failure 2D DIMENSIONS IVSd1.18 (0.7-1.1cm)LVDd4.51 (3.9-5.9cm) LVOT Diameter1.90 (1.8-2.4cm)PWd0.99 (0.7-1.1cm) IVSs1.36 (0.8-1.2cm)LVDs4.32 (2.5-4.0cm) FS (%) 4.3 %PWs1.45 (0.8-1.2cm) Mitral Valve MV E Qmfpkxwq33.5cm/sMV DECEL [id number] A Wjfmmabq799.6cm/s MV FLE54niX/A ratio0.4MVA (PHT)5.16cm2 TDI Lateral E' Peak V9.13cm/sMedial E' Peak V6.76cm/sE/Lateral E'7.2 E/Medial E'9.7 Tricuspid Valve TR Peak [id number]/sRAP [id number] Peak Gr.10mmHg [id number] LEFT VENTRICLE The left ventricle is normal size. There is normal left ventricular wall thickness. The systolic function is moderately to severely impaired. The Ejection Fraction is <25%. There is global hypokinesis of the left ventricle. Transmitral Doppler flow pattern is Grade I-abnormal relaxation pattern. RIGHT VENTRICLE The right ventricle is normal size. There is normal right ventricular wall thickness. The right ventricular systolic function is normal. ATRIA The left atrium size is normal. The right atrium size is normal. AORTIC VALVE The aortic valve is normal in structure. No aortic regurgitation is present. There is no aortic valvular stenosis. MITRAL VALVE The mitral valve is normal in structure. There is no mitral valve stenosis. There is no mitral valve regurgitation noted. TRICUSPID VALVE The tricuspid valve is normal in structure. There is no tricuspid valve regurgitation noted. PULMONIC VALVE The pulmonary valve is normal in structure. There is no pulmonic valvular regurgitation. GREAT VESSELS The aortic root is normal in size. The IVC is normal in size and collapses >50% with inspiration. PERICARDIAL EFFUSION The pericardium appears normal. <Conclusion> The left ventricle is normal size. The systolic function is moderately to severely impaired. The Ejection Fraction is <25%. There is global hypokinesis of the left ventricle.
[2017-07-07] MEDS: MethylPREDNISolone 40 mg Vial IVP SCH ×2 (17:00→20:30)
[2017-07-07 18:23] VITALS: BP 134/67; PULSE 78; RESP 18; TEMP 98.2; O2SAT 96
== END 2017-07-07 22:18 | DRG 541 ==
LOC: EDBD 13:35 → H.ER 13:35 → H.ERHOLD 20:42 → H.ICU/CCU 07-05 00:43 → OBSVTOIN 07-05 08:31 → H.MEDSURG1 07-05 18:40
PROVIDERS: ADMIT Internal Medicine; ATTEND Internal Medicine
PROC: 3E0F7GC Introduction of Other Therapeutic Substance into Respiratory Tract, Via Natural or Artificial Opening (ICD-10-PCS; principal; 2017-07-05)
DX: J44.1 Chronic obstructive pulmonary disease with (acute) exacerbation (principal); A41.9 Sepsis, unspecified organism; N17.9 Acute kidney failure, unspecified; N39.0 Urinary tract infection, site not specified; J98.11 Atelectasis; E87.6 Hypokalemia; F03.90 Unspecified dementia, unspecified severity, without behavioral disturbance, psychotic disturbance, mood disturbance, and anxiety; B96.20 Unspecified Escherichia coli [E. coli] as the cause of diseases classified elsewhere; I27.21 Secondary pulmonary arterial hypertension; Z16.29 Resistance to other single specified antibiotic; I10 Essential (primary) hypertension; G47.00 Insomnia, unspecified; E78.00 Pure hypercholesterolemia, unspecified; F32.9 Major depressive disorder, single episode, unspecified; Z99.81 Dependence on supplemental oxygen; Z79.82 Long term (current) use of aspirin